=== PATIENT | male | born 1985 | race Asian ===

== ENCOUNTER 2019-08-04 18:05 | Emergency (ER) | payer OTHER ==
[~2019-08-04] VITALS: Ht 180.3 cm; Wt 63.5 kg
[2019-08-04 18:27] VITALS: BP 111/74
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
[2019-08-04] MEDS ORDERED: ROBAXIN-750750 MG PO (19:05)
[2019-08-04] MEDS ORDERED: IBUPROFEN600 MG ORAL (19:05)
[2019-08-04] MEDS ORDERED: Morphine Sulfate 2mg/ml Inj(IV/IM USE ONLY) IVP ONE (19:15)
[2019-08-04 19:20] VITALS: BP 111/74
== END 2019-08-04 19:20 | disposition home or self-care (01) ==
LOC: EMR 19:10
DX: S16.1XXA Strain of muscle, fascia and tendon at neck level, initial encounter (principal); S39.012A Strain of muscle, fascia and tendon of lower back, initial encounter; V43.52XA Car driver injured in collision with other type car in traffic accident, initial encounter; Y92.411 Interstate highway as the place of occurrence of the external cause
CPT/HCPCS: 96374; 99284